=== PATIENT | male | born 1990 | race Caucasian/White ===

== ENCOUNTER → 2019-04-20 | Outpatient (CLI) | payer OTHER ==
--- NOTE | 2019-04-20 19:09 | REP ---
LEFT KNEE SERIES, FIVE VIEWS: There is no evidence of an acute fracture, dislocation or intrinsic bone disease. IMPRESSION: No fracture or dislocation. Electronically Signed by Yared John MD 04/21/2019 10:56 A
== END ==
LOC: M RAD 08:50
PROVIDERS: ATTEND Surgery
DX: M25.562 Pain in left knee (principal)